=== PATIENT | male | born 1965 | race Hispanic/Latino ===

== ENCOUNTER → 2024-03-17 | Outpatient (CLI) | payer MEDICAID ==
[2024-03-17 21:52] VITALS: PULSE 80; RESP 12; RESP 20
[2024-03-17 22:23] VITALS: PULSE 79; RESP 18
[2024-03-17 23:04] VITALS: PULSE 76; RESP 20
[2024-03-17 23:34] VITALS: PULSE 79; RESP 16
[2024-03-18] VITALS (11 sets, daily range): PULSE 63–79; RESP 12–18
== END | disposition home or self-care (01) ==
LOC: SLP 20:15
PROVIDERS: ATTEND Family Medicine
DX: G47.33 Obstructive sleep apnea (adult) (pediatric) (principal); I10 Essential (primary) hypertension
CPT/HCPCS: 95810

== ENCOUNTER → 2024-07-12 | Outpatient (CLI) | payer MEDICAID | END | disposition home or self-care (01) | LOC: SHCH 14:48 | PROVIDERS: ATTEND Internal Medicine Cardiovascular Disease | DX: I40.9 Acute myocarditis, unspecified (principal) | CPT/HCPCS: 93306 ==